=== PATIENT | female | born 1985 | race Caucasian/White ===

== ENCOUNTER 2018-12-21 13:57 | Outpatient (CLI) | payer OTHER ==
--- NOTE | 2018-12-21 16:18 | ULT ---
OB ULTRASOUND: Indications: Anatomy evaluation. FINDINGS: There is a single viable intrauterine . Gestational age by ultrasound is 21 weeks 4 days. Bi ometry measurements below: BPD 22 weeks 0 day HC 21 weeks 5 day AC 21 weeks 6 day FL 21 weeks 0 day EFW: 429 grams, 20 weeks 6 day Placenta: Posterior Position: Breech Amniotic fluid: Adequate JESSE: 17.0 cm heart rate: 150 beats/minute Cervical length: 3.7 cm Anatomy evaluated includes intracranial contents, four chamber heart, stomach, kidneys, cord insertio n, bladder, spine, facial features, extremities and three vessel cord. No abnormality identified. IMPRESSION: 21 week 4 day gestational age by ultrasound. POS: [facility]
== END 2018-12-21 13:58 | disposition home or self-care (01) ==
LOC: SCSULT 13:57
PROVIDERS: ATTEND Obstetrics & Gynecology
DX: Z34.02 Encounter for supervision of normal first pregnancy, second trimester (principal); Z3A.21 21 weeks gestation of pregnancy
CPT/HCPCS: 76805

== ENCOUNTER 2019-03-10 14:04 | Outpatient (CLI) | payer OTHER ==
--- NOTE | 2019-03-10 15:04 | ULT ---
Limited obstetrical ultrasound Indication: Evaluate growth. COMPARISON: Prior exam dated 12/21/2018. FINDINGS: There is single live intrauterine gestation in breech presentation. The placenta is posteri or and fundal in location. Cardiac activity is noted at 145 bpm. Imaging of anatomy is limited due to advanced gestational age. Biparietal diameter measured 7.82 cm giving an estimated gestational age of 31 weeks and 3 days (20th percentile). The head circumference measured 29.39 cm giving an estimated gestational age of 30 weeks and 3 days ( 21st percentile). The abdominal circumference measured 27.23 cm giving an estimated gestational age 31 weeks 2 days (25 th percentile). The femoral length was 6.26 cm giving an estimated gestational age of 13 weeks 3 days (44th percentil e). The estimated weight is 1834 g +/- 271 g (4 lbs. 1 oz. +/- 10 ounces). (28th percentile). Estimated gestational age based on biometrics is 31 weeks and 6 days. Estimated due date of Apr. Clinical age is 32 weeks and 1 day with estimated due date of May 04, 2019. JESSE measured 14.8 cm. IMPRESSION: Single live intrauterine gestation with size and dates as above. Transcribed Date/Time: 03/10/2019 3:14 PM
== END 2019-03-10 14:05 | disposition home or self-care (01) ==
LOC: SCSULT 14:04
PROVIDERS: ATTEND Obstetrics & Gynecology
DX: Z34.03 Encounter for supervision of normal first pregnancy, third trimester (principal); Z3A.31 31 weeks gestation of pregnancy
CPT/HCPCS: 76816

== ENCOUNTER 2019-04-04 08:30 | Day surgery (SDC) | payer OTHER ==
[2019-04-04 08:41] VITALS: BMI 44.6
--- NOTE | 2019-04-04 09:32 | PDOC.FPROB ---
FMR OB H&P: HPI - History of Present Illness Chief Complaint: Decreased movement History of Present Illness: 34 yo G1 @ 35.5 weeks presents for decreased movement. She notes decreased FM last night and was barely making kick counts, 5 in one hour. She notes no FM since 3 am and presented for evaluation. Denies dysuria, VB, VD. Has few intermittent contractions. During our conversation she said she felt a lot of FM in the past 5 minutes. Primary Care Physician: Maya Quan FMR OB H&P: Current - Care : 1 Para: 0 Gestational age: 35.5 FMR OB H&P: History - Past Medical History PMH: Asthma, history of migraines-none in - ICU NURSE History ICU NURSE History: Uterine polyp removal - Surgical History Sx History: Lap cholecystectomy - Social History Social History: Denies tobacco, alcohol, drug use. FMR OB H&P: Medications - Current Allergies/Adverse Reactions: Allergies Allergy/AdvReac Type Severity Reaction Status Date / Time morphine Allergy Verified 04/04/19 08:47 FMR OB H&P: ROS - Review of Systems General: denies: weight/appetite/sleep changes, fatigue Eyes: denies: vision changes Cardiovascular: denies: palpitation, edema Respiratory: denies: congestion, shortness of breath Gastrointestinal: denies: abdominal pain, nausea, vomiting, diarrhea Genitourinary (Female): reports: contractions. denies: dysuria, vaginal discharge, vaginal pain, vaginal bleeding, vaginal pressure Musculoskeletal: denies: pain, swelling Neurologic: denies: weakness, headache Integumentary: denies: itching, rash FMR OB H&P: Vital Signs - Maternal Vital signs: 118/75, 87, 98.2, 97% - Heart Tones Baseline: 145 Variability: moderate Acceleration: present Deceleration: absent FMR OB H&P: Physical Exam - Physical Exam General: NAD, awake, alert and oriented (obese) HEENT: normocephalic and atraumatic, MMM Heart: RRR, normal S1/S2, no edema General: CTAB, no respiratory distress Abdomen: soft, gravid, non-tender, bowel sound present Skin: good tugor, capillary refill <2 seconds Lymphatic: no unusual bruising or bleeding Psychiatric: normal mood and affect FMR OB H&P: A/P - Problem List (1) Decreased movement Current Visit: Yes Status: Acute Code(s): O36.8190 - DECREASED MOVEMENTS, UNSP TRIMESTER, UNSP Discussion: Date/Time: 04/04/19931 Decreased FM - Patient has BMI 44, otherwise no other reported complications of this - NST reactive and patient now feeling movement. ROS otherwise negative - Patient was given reassurance and discharged home. She has appt scheduled for Friday with Dr. Quan. This H&P was discussed with Dr. Hou who agrees with the above documentation and plan.
--- NOTE | 2019-04-04 09:56 | PDOC.EVN ---
Event Note - Event Note Event Note: [facility] Faculty Time: 944 Patient seen and examined by me Here for decresaed FM now resolved at [address] Quan No VB, no LOF NST reactive and she now feels BM See full H&P
== END 2019-04-04 10:05 | disposition home health service (06) ==
LOC: L&D/OP 08:30
PROVIDERS: ATTEND Obstetrics & Gynecology
DX: O36.8130 Decreased fetal movements, third trimester, not applicable or unspecified (principal); O99.213 Obesity complicating pregnancy, third trimester; E66.9 Obesity, unspecified; O99.513 Diseases of the respiratory system complicating pregnancy, third trimester; J45.909 Unspecified asthma, uncomplicated; O99.353 Diseases of the nervous system complicating pregnancy, third trimester; G43.909 Migraine, unspecified, not intractable, without status migrainosus; Z88.5 Allergy status to narcotic agent; Z3A.35 35 weeks gestation of pregnancy
CPT/HCPCS: 99282

== ENCOUNTER 2019-04-30 05:30 | Inpatient (IN) | payer OTHER ==
[2019-05-02 07:18] VITALS: BMI 45.3
[2019-05-02] MEDS ORDERED: Lidocaine 1% (PF) 30 ML VIAL ONE (07:39)
[2019-05-02] MEDS: Lactated Ringer's 1,000 ML IV SCH ×3 (07:52→16:29)
[2019-05-02] MEDS ORDERED: Penicillin G Potassium 5 MILL.UNITS VIAL ONE (08:00)
[2019-05-02] MEDS ORDERED: Ondansetron PF 4 MG/2 ML Vial IVP PRN ×3 (08:14→22:45)
[2019-05-02] MEDS ORDERED: Ibuprofen 800 MG TAB PO PRN (08:14)
[2019-05-02] MEDS ORDERED: HYDROcodone/Acetaminophen 5/325 mg Tablet PO PRN ×4 (08:14→22:45)
[2019-05-02] MEDS ORDERED: Lidocaine 1% (PF) 30 ML VIAL SC PRN (08:14)
[2019-05-02] MEDS ORDERED: Promethazine HCl 25 MG/ML VIAL IM PRN ×2 (08:14→16:53)
[2019-05-02] MEDS ORDERED: hydrALAZINE 20 MG/ML VIAL SLOW IVP PRN ×2 (08:14→22:45)
[2019-05-02] MEDS ORDERED: Docusate 100 MG CAP PO PRN (08:14)
[2019-05-02] MEDS ORDERED: NS / Oxytocin 40 units/1000ml 1,000 ML IV PRN (08:14)
[2019-05-02] MEDS ORDERED: Penicillin G Potassium 5 MILL.UNITS in Sodium Chloride 0.9% 100 ML IVPB SCH (08:15)
[2019-05-02] MEDS ORDERED: Bupivacaine 0.25% HCL 30 ML VIAL ONE (09:00)
[2019-05-02] MEDS: NS w/ Oxytocin 10 units 500 ML IV SCH (09:18)
[2019-05-02 10:15] LABS: Hemoglobin 9.7 g/dL (12.0-16.0); Mean Corpuscular HGB CONC 31.9 g/dL (32.0-36.0); Mean Corpuscular Hemoglobin 20.3 pg (27.0-31.0); Mean Corpuscular Volume 63.5 fL (78.0-98.0); Mean Platelet Volume 7.4 fL (7.4-10.4); Platelet Count 224 thou/uL (130-400); Red Blood Cell (RBC) Count 4.77 mill/uL (4.20-5.40); White Blood Cell (WBC) Count 8.1 thou/uL (4.8-10.8)
[2019-05-02 10:27] LABS: HBSAg Index 0.18 S/CO (0-0.99); Hep B Surf Ag Non-Reactive S/CO (NonReactive); Syphilis Antibody Nonreactive (Nonreactive); Syphilis Antibody Index 0.04 S/CO (<1.00 Non-Reactive)
[2019-05-02] MEDS: Penicillin G 2.5 MILL.units 2.5 MILL.UNITS in Premix Bag 1 BAG IVPB SCH ×3 (12:00→21:00)
[2019-05-02] MEDS ORDERED: Fentanyl 4 mcg/Bup 0.1% Cadd 100 ML ONE (16:11)
[2019-05-02] MEDS ORDERED: Lidocaine 1.5%/Epinephrine 1:200,000 5 ML AMPUL IJ ONE (16:12)
[2019-05-02] MEDS ORDERED: Naloxone HCl 0.4 mg/ml Vial IVP PRN ×2 (16:53)
[2019-05-02] MEDS ORDERED: Lactated Ringer's 500 ML IV PRN (16:53)
[2019-05-02] MEDS ORDERED: ePHEDrine/0.9% NaCl/PF SYRINGE 50 mg/10 ml SLOW IVP PRN (16:53)
[2019-05-02] MEDS ORDERED: diphenhydrAMINE 50 MG/ML VIAL IVP PRN (16:53)
[2019-05-02] MEDS ORDERED: Fentanyl 4 mcg/Bupivacaine 0.1% Cassette 100 ML EPIDURAL SCH (17:00)
[2019-05-02] MEDS ORDERED: Communication Order-Pharmacy FS SCH (17:00)
[2019-05-02] MEDS: NS / Oxytocin 40 units/1000ml 1,000 ML IV SCH ×2 (22:10→23:23)
[2019-05-02] MEDS ORDERED: Benzocaine-Menthol 82.5 ML CAN TOP PRN (22:45)
[2019-05-02] MEDS ORDERED: Lanolin Ointment 7 GM TUBE TOP PRN (22:45)
[2019-05-02] MEDS ORDERED: Bisacodyl 10 MG SUPP PR PRN (22:45)
[2019-05-02] MEDS ORDERED: Milk Of Magnesia 30 ML UDCUP PO PRN (22:45)
[2019-05-03] MEDS ORDERED: Sodium Chloride 0.9% 10 ML ONE (02:52)
[2019-05-03] MEDS: Acetaminophen 325 MG TAB PO PRN ×2 (03:30→20:24)
[2019-05-03] MEDS: Ibuprofen 800 MG TAB PO SCH ×3 (06:20→21:14)
[2019-05-03] MEDS: Penicillin G 2.5 MILL.units 2.5 MILL.UNITS in Premix Bag 1 BAG IVPB SCH (08:56)
[2019-05-03] MEDS: Lactated Ringer's 1,000 ML IV SCH (08:57)
[2019-05-03] MEDS ORDERED: Adacel (T-DAP) 0.5 ML SYRINGE IM ONE (09:00)
[2019-05-03] MEDS: Ferrous Sulfate 325 MG TAB PO SCH ×2 (09:37→17:48)
[2019-05-03] MEDS: Prenatal Vitamin 1 TAB PO SCH (09:37)
[2019-05-03] MEDS: Docusate Calcium (SURFAK) 240 MG CAP PO SCH ×2 (09:37→21:13)
[2019-05-03] MEDS: NS w/ Oxytocin 10 units 500 ML IV SCH (09:38)
[2019-05-04] MEDS: Ibuprofen 800 MG TAB PO SCH ×2 (06:07→14:02)
[2019-05-04 08:10] VITALS: BP 137/85; TEMP 98.2
[2019-05-04] MEDS: Docusate Calcium (SURFAK) 240 MG CAP PO SCH (08:30)
[2019-05-04] MEDS: Prenatal Vitamin 1 TAB PO SCH (08:30)
[2019-05-04] MEDS: NS w/ Oxytocin 10 units 500 ML IV SCH (08:30)
[2019-05-04] MEDS: Ferrous Sulfate 325 MG TAB PO SCH (08:30)
== END 2019-05-04 15:00 | disposition home or self-care (01) | DRG 807 ==
LOC: L&D 05-02 06:23 → 3SW 05-03 00:51
PROVIDERS: ADMIT Obstetrics & Gynecology; ATTEND Obstetrics & Gynecology
PROC: 10E0XZZ Delivery of Products of Conception, External Approach (ICD-10-PCS; principal; 2019-05-02)
PROC: 0KQM0ZZ Repair Perineum Muscle, Open Approach (ICD-10-PCS; 2019-05-02)
PROC: 10907ZC Drainage of Amniotic Fluid, Therapeutic from Products of Conception, Via Natural or Artificial Opening (ICD-10-PCS; 2019-05-02)
PROC: 3E033VJ Introduction of Other Hormone into Peripheral Vein, Percutaneous Approach (ICD-10-PCS; 2019-05-02)
DX: O99.824 Streptococcus B carrier state complicating childbirth (principal); Z37.0 Single live birth; O69.81X0 Labor and delivery complicated by cord around neck, without compression, not applicable or unspecified; O70.1 Second degree perineal laceration during delivery; Z3A.39 39 weeks gestation of pregnancy
CPT/HCPCS: 36415; 51702; 76815; 85027; 86780; 86850; 86900; 86901; 87340; J2001; J2310; J2540; J2590; J3490; S0020

== ENCOUNTER 2019-05-14 17:46 | Emergency (ER) | payer OTHER ==
[2019-05-14] MEDS ORDERED: Cephalexin 250 MG CAP ONE (18:44)
[2019-05-14] MEDS ORDERED: Ibuprofen 200 MG TAB ONE (18:48)
[2019-05-14] MEDS ORDERED: Acetaminophen 500 MG TAB ONE (18:58)
== END 2019-05-14 19:10 | disposition home or self-care (01) ==
LOC: SCSER 17:46
DX: N61.0 Mastitis without abscess (principal)
CPT/HCPCS: 99283